=== PATIENT | male | born 1975 | race Caucasian/White ===

== ENCOUNTER 2021-03-02 17:09 | Emergency (ER) | payer MEDICAID, MEDICARE ==
[~2021-03-02] VITALS: Ht 177.8 cm; Wt 89.5 kg
--- NOTE | 2021-03-02 19:50 | NUR ---
To tr2 from lobby Patient with "piece of chicken" stuck in lower esophagus Patient thinks this occured 2 days ago. no airway involvement erp to bedside to call GI for EGD for removal
[2021-03-02] MEDS ORDERED: PROPOFOL 10 MG/ML, 20ML ONE (20:52)
[2021-03-02] MEDS ORDERED: ONDANSETRON 2MG/ML, 2ML ONE (20:52)
[2021-03-02] MEDS ORDERED: PROPOFOL 10 MG/ML, 20ML IVPush ONE ×2 (21:00→22:30)
[2021-03-02] MEDS ORDERED: ONDANSETRON 2MG/ML, 2ML IVPush ONE (21:30)
--- NOTE | 2021-03-02 22:00 | NUR ---
Patient tolerated egd well via 160mg of propofol. Large amount of meat retrieved by Dr. Silva. Mass to lower esophagus found. Dr. Tdaeo to bedside once patient is recovered to communicate abnormality Patient po challenge (water only), educated on pureed only diet until cleared by Gi MD. Safely walked to discharge lobby in the care of his spouse
[2021-03-02 22:24] VITALS: BP 135/70
== END 2021-03-02 22:30 | disposition home or self-care (01) ==
LOC: ED 17:39
DX: T18.128A Food in esophagus causing other injury, initial encounter (principal); K20.90 Esophagitis, unspecified without bleeding; X58.XXXA Exposure to other specified factors, initial encounter; Y93.89 Activity, other specified; Y92.89 Other specified places as the place of occurrence of the external cause; Y99.8 Other external cause status
CPT/HCPCS: 43247; 74220; 96374; 99285; J2405; J2704

== ENCOUNTER 2021-03-12 14:09 | Outpatient (CLI) | payer MEDICARE, MEDICAID ==
[2021-03-12] MEDS ORDERED: OMNIPAQUE 350 MG/ML, 100ML BOTTLE ONE (15:15)
== END 2021-03-12 23:59 | disposition home or self-care (01) ==
LOC: CFH 14:09
PROVIDERS: ATTEND Internal Medicine Gastroenterology
DX: C15.9 Malignant neoplasm of esophagus, unspecified (principal); K22.2 Esophageal obstruction; M48.54XA Collapsed vertebra, not elsewhere classified, thoracic region, initial encounter for fracture; J84.10 Pulmonary fibrosis, unspecified; K76.89 Other specified diseases of liver
CPT/HCPCS: 71260; 74160; Q9967

== ENCOUNTER → 2021-04-12 | Outpatient (CLI) | payer MEDICARE, MEDICAID | END | disposition home or self-care (01) | LOC: CVU 10:53 | PROVIDERS: ATTEND Internal Medicine Hematology & Oncology | DX: C15.5 Malignant neoplasm of lower third of esophagus (principal); I35.8 Other nonrheumatic aortic valve disorders; I31.3 Pericardial effusion (noninflammatory) | CPT/HCPCS: 93306 ==

== ENCOUNTER 2021-05-04 12:09 | Emergency (ER) | payer MEDICAID, MEDICARE ==
[~2021-05-04] VITALS: Ht 177.8 cm; Wt 85.0 kg
[2021-05-04 12:14] VITALS: BP 132/85
[2021-05-04] MEDS ORDERED: APIXABAN 5 MG TABLET ONE ×2 (12:52→13:19)
[2021-05-04] MEDS ORDERED: APIXABAN 5 MG TABLET PO ONE (13:30)
== END 2021-05-04 13:36 | disposition home or self-care (01) ==
LOC: ED 12:31
DX: I82.493 Acute embolism and thrombosis of other specified deep vein of lower extremity, bilateral (principal); R00.0 Tachycardia, unspecified
CPT/HCPCS: 93005; 99283

== ENCOUNTER → 2021-05-04 | Outpatient (CLI) | payer MEDICARE, MEDICAID | END | disposition home or self-care (01) | LOC: RAD 10:36 | PROVIDERS: ATTEND Nurse Practitioner | DX: C15.5 Malignant neoplasm of lower third of esophagus (principal); I82.493 Acute embolism and thrombosis of other specified deep vein of lower extremity, bilateral; R60.0 Localized edema; R13.10 Dysphagia, unspecified; Z79.899 Other long term (current) drug therapy | CPT/HCPCS: 93970 ==